=== PATIENT | female | born 1995 | race Caucasian/White ===

== ENCOUNTER 2017-03-16 06:01 | Emergency (ER) | payer OTHER ==
[2017-03-16] MEDS ORDERED: ONDANSETRON HCL INJ/PF 4 MG/2 ML SDV IV ONE (08:21)
[2017-03-16] MEDS ORDERED: KETOROLAC TROMETHAMINE INJ/PF 30 MG/1 ML SDV IV ONE (08:21)
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
[2017-03-16] MEDS ORDERED: IBUPROFEN 800 MG TABLET PO ONE (09:41)
[2017-03-16 11:31] VITALS: BP 128/81
== END 2017-03-16 11:31 | disposition home or self-care (01) ==
LOC: ER 06:01
DX: S42.292A Other displaced fracture of upper end of left humerus, initial encounter for closed fracture (principal); S63.501A Unspecified sprain of right wrist, initial encounter; M54.2 Cervicalgia; R11.0 Nausea; V89.2XXA Person injured in unspecified motor-vehicle accident, traffic, initial encounter
CPT/HCPCS: 99284; 96374; 96375; 71010; 73070; 73090; 73060; 73030; 73110; 70450; 72125; J1885; J2405